=== PATIENT | female | born 1990 | race Caucasian/White ===

== ENCOUNTER → 2018-10-11 | Outpatient (REF) | payer OTHER | LOC: M LAB REF 16:33 | PROVIDERS: ATTEND Nurse Practitioner Women's Health | DX: Z34.83 Encounter for supervision of other normal pregnancy, third trimester (principal) ==

== ENCOUNTER 2019-02-19 12:51 | Emergency (ER) | payer OTHER ==
[~2019-02-19] VITALS: Ht 170.2 cm; Wt 84.5 kg
[2019-02-19] MEDS ORDERED: DEBL1TAB (12:59)
[2019-02-19] MEDS ORDERED: PREN1TAB15 (12:59)
[2019-02-19] MEDS ORDERED: SERT-155 (12:59)
[2019-02-19 13:42] LABS: BASO % 0.5 % (0.0-1.0); EOS # 0.1 10^3/uL (0.0-0.50); EOS % 1.5 % (0.0-3.0); LYMPH # 1.5 10^3/uL (1.5-6.5); LYMPH % 22.7 % (24.0-44.0); MEAN CORPUSCULAR HEMOGLOBIN 27.2 pg (27.0-33.0); MEAN CORPUSCULAR HGB CONC 32.6 g/dl (32.0-36.5); MEAN CORPUSCULAR VOLUME 83.7 fl (80.0-96.0); MONO # 0.5 10^3/uL (0.0-0.8); NEUTROPHILS # 4.5 10^3/uL (1.8-7.7); NEUTROPHILS % 68.1 % (36.0-66.0); PLATELET COUNT, AUTOMATED 302 10^3/uL (150-450); RED BLOOD COUNT 5.14 10^6/uL (4.00-5.40); WHITE BLOOD COUNT 6.5 10^3/uL (4.0-10.0)
[2019-02-19 13:59] LABS: INR 0.95; PROTHROMBIN TIME 12.4 SECONDS (11.8-14.0)
[2019-02-19 14:00] LABS: PARTIAL THROMBOPLASTIN TIME 29.8 SECONDS (25.0-38.4)
[2019-02-19] MEDS ORDERED: NS 1,000 ML IV ONE (14:00)
[2019-02-19 14:04] LABS: ALBUMIN 3.9 GM/DL (3.2-5.2); ALT/SGPT 31 U/L (12-78); BILIRUBIN,DIRECT 0.1 MG/DL (0.0-0.2); BILIRUBIN,TOTAL 0.2 MG/DL (0.2-1.0); BLOOD UREA NITROGEN 18 MG/DL (7-18); CALCIUM LEVEL 8.9 MG/DL (8.5-10.1); CARBON DIOXIDE LEVEL 26 MEQ/L (21-32); CHLORIDE LEVEL 107 MEQ/L (98-107); CREATININE FOR GFR 0.87 MG/DL (0.55-1.30); GLOMERULAR FILTRATION RATE > 60.0 (>60); GLUCOSE, FASTING 98 MG/DL (70-100); POTASSIUM SERUM 4.1 MEQ/L (3.5-5.1); SODIUM LEVEL 141 MEQ/L (136-145); TOTAL PROTEIN 7.5 GM/DL (6.4-8.2)
[2019-02-19 14:26] LABS: FREE T4 0.78 NG/DL (0.76-1.46); IRON (FE) 57 UG/DL (50-170); PERCENT SATURATION 15.2 % (13.2-45.0); TOTAL IRON BINDING CAPACITY 376 UG/DL (250-450)
[2019-02-19 14:29] LABS: FOLATE > 24.0 NG/ML (>5.4)
[2019-02-19 16:00] VITALS: BP 133/76
== END 2019-02-19 16:14 | disposition home or self-care (01) ==
LOC: M ED 12:51
DX: N89.8 Other specified noninflammatory disorders of vagina (principal); F33.9 Major depressive disorder, recurrent, unspecified; Z79.899 Other long term (current) drug therapy

== ENCOUNTER 2020-08-03 21:40 | Emergency (ER) | payer OTHER ==
[~2020-08-03] VITALS: Ht 170.2 cm; Wt 97.7 kg
[~2020-08-03 21:40] MED LIST: DEBL1TAB; PREN1TAB15; SERT50TA29 PO
--- OUTSIDE RECORDS SUMMARY | 2020-08-03 21:45 | CCD ---
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 [address] [place] [address] Apr Kirsitn Navarro Dysmenorrhea N94.6 ; major de pression in remission F53.0 and Immunization not carried out because of patient refusal Z28.21 IMMUNIZATIONS Vaccine Route Administration Date Status Influenza (6mo & up) Fluzone Unknown Apr 20, 2018 Adm inistered SOCIAL HISTORY Tobacco Use: Social History Observation Description Date Details (start date - stop date) Never Smoker Sex Assigned At : Social History Observation Description Sex Assigned At Unknown Language: Question Answer Notes Languages spoken: Turkish Sexual Hx: Question Answer Notes Had sex in the last 12 months (vaginal, oral, or anal)? Yes Have you ever had an STD? No with Men only Use protection? No Alcohol Screening: Question Answer Notes Did you have a drink containing alcohol in the past year? No Points 0 Interpretation Negative BMI Care Goal Follow-Up Question Answer Notes Above Normal BMI Follow-Up Dietary management educatio n, guidance, and counseling Tobacco Use: Question Answer Notes Are you a: never smoker REASON FOR REFERRAL No Information VITAL SIGNS Weight 206 lbs Apr, Height 66 1/4 in Apr, BMI 33.00 kg/m2 08 Oct, 2020 Heart Rate 72 /min Apr, Respiratory Rate 18 /min Apr, Temperature 98.9 degrees Fahrenheit Apr, Oximetry 96 Apr, Blood pressure systolic 102 mm Hg Apr, Blood pressure diastolic 72 mm Hg Apr, MEDICATIONS Medication SIG (Take, Route, Frequency, Duration) Start Date En d Date Status Sertraline HCl 50 MG TAKE ONE TABLET BY MOUTH EVERY DAY orally Ez y Active Levonorgest-Eth Estrad 91-Day 0.15-0.03 MG 1 tablet Or ally Once a day for 91 day(s) Apr, Active Sertraline HCl 25 MG 1 tablet Orally Once a day for 30 day(s) Active PROCEDURES No Information RESULTS No Results REASON FOR VISIT 1 year followup MEDICAL (GENERAL) HISTORY Type Description Date Medical History depression with hx of post depres raad Medical History migraines: well controlled Surgical History No know Surgical history Goals Section No Information Health Concerns No Information MEDICAL EQUIPMENT No Information MENTAL STATUS No Information FUNCTIONAL STATUS No Information ASSESSMENTS Encounter Date Diagnosis Notes Apr, major depression in remission (ICD-10 - F53.0) Apr, Dysmenorrhea (ICD-10 - N94.6) Apr, Immunization not carried out because of patient refusal (ICD-10 - Z28.21) PLAN OF TREATMENT Medication Medication Name Sig Start Date Stop Date Levonorgest-Eth Estrad 91-Day 0.15-0.03 MG 1 tablet Or ally Once a day for 91 day(s) Apr, Treatment Notes Assessment Notes Clinical Notes Dysmenorrhea Medication/s discuss ed with patient and questions answered. RTC as needed for worsening or unresolved symptoms. Patient states understanding and agreement with this plan. Next Appt Details 3-4 months WWE Reason: Insurance Providers Payer Name Payer Address Payer Phone Insured Name Patient Relati onship to Insured Coverage Start Date Coverage End Date [facility] [address] [address] [facility] [phone] JORGE RIDER self
--- OUTSIDE RECORDS SUMMARY | 2020-08-03 21:45 | CCD ---
Author [facility] Organization [facility] Address Unknown Phone Unavailable Care Team Providers Care Prepper Name Role Phone Dolores Navarroiffer Unavailable PROBLEMS Type Condition ICD9-CM Code [id number] Code Onset Dates Condition S tatus SNOMED Code Notes Problem Ocular migraine G43.109 Active 04660214 Problem Dysmenorrhea N94.6 Active 214754857 Problem Anxiety F41.9 Active 84829585 ALLERGIES No Known Allergies ENCOUNTERS from 1991 to 2020-06-26 Encounter Location Date Provider Diagnosis [address] [address] Jun Kirstin Navarro IMMUNIZATIONS Vaccine Route Administration Date Status Influenza (6mo & up) Fluzone Unknown Apr 20, 2018 Adm inistered SOCIAL HISTORY Tobacco Use: Social History Observation Description Date Details (start date - stop date) Never Smoker Sex Assigned At : Social History Observation Description Sex Assigned At Unknown Language: Question Answer Notes Languages spoken: Romanian Sexual Hx: Question Answer Notes Had sex [...] REASON FOR REFERRAL No Information VITAL SIGNS No information MEDICATIONS Medication SIG (Take, Route, Frequency, Duration) Notes Start Da te End Date Status Sertraline HCl 25 MG 1 tablet Orally Once a day for 30 day(s) Active Levonorgest-Eth Estrad -Day 0.15-0.03 MG 1 tablet Or ally Once a day for 91 day(s) Apr, Active Sertraline HCl 50 MG 1.5 tablet Orally Once a day for 30 Days Active PROCEDURES No Information RESULTS No Results REASON FOR VISIT refill MEDICAL (GENERAL) HISTORY Type Description Date Medical History depression with hx of post depres raad Medical History migraines: well controlled Surgical History No know Surgical history Goals Section No Information Health Concerns No Information MEDICAL EQUIPMENT No Information MENTAL STATUS No Information FUNCTIONAL STATUS No Information ASSESSMENTS No Information PLAN OF TREATMENT Medication Medication Name Sig Start Date Stop Date Levonorgest-Eth Estrad 91-Day 0.15-0.03 MG 1 tablet Or ally Once a day for 91 day(s) Apr, Sertraline HCl 50 MG 1.5 tablet Orally Once a day for 30 Days Insurance Providers Payer Name Payer Address Payer Phone Insured Name Patient Relati onship to Insured Coverage Start Date Coverage End Date [facility] [address] [address] [facility] [phone] JORGE RIDER self
--- OUTSIDE RECORDS SUMMARY | 2020-08-03 21:45 | CCD ---
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 Name Role Phone Sonia Kingsleyina MONEY ROOM TELLER Unavailable Unavailable Kingsley, Maryjo MONEY ROOM TELLER Unavailable Unavailable Kingsley, Maryjo MONEY ROOM TELLER Unavailable Unavailable Kingsley, Maryjo MONEY ROOM TELLER Unavailable Unavailable Kingsley, Maryjo MONEY ROOM TELLER Unavailable Unavailable Kingsley, Maryjo MONEY ROOM TELLER Unavailable Unavailable Kingsley, Maryjo MONEY ROOM TELLER Unavailable Unavailable Kingsley, Maryjo MONEY ROOM TELLER Unavailable Unavailable Kingsley, Maryjo MONEY ROOM TELLER Unavailable Unavailable Kingsley, Maryjo MONEY ROOM TELLER Unavailable Unavailable Kingsley, Maryjo MONEY ROOM TELLER Unavailable Unavailable LETTIERE, Yamilet RODRIGUEZ PA Unavailable Unavailable LETTIERE, Yamilet MATAMOROS Unavailable Unavailable LETTIERE, Yamilet MATAMOROS Unavailable Unavailable LETTIERE, Yamilet RODRIGUEZ PA Unavailable Unavailable LETTIERE, Yamilet RODRIGUEZ PA Unavailable Unavailable LETTIERE, Yamilet MATAMOROS Unavailable Unavailable LETTIERE, Yamilet MATAMOROS Unavailable Unavailable LETTIERE, Yamilet MATAMOROS Unavailable Unavailable LETTIERE, Yamilet MATAMOROS Unavailable Unavailable LETTIERE, Yamilet MATAMOROS Unavailable Unavailable LETTIERE, Yamilet MATAMOROS Unavailable Unavailable LETTIERE, Yamilet MATAMOROS Unavailable Unavailable LETTIERE, Yamilet MATAMOROS Unavailable Unavailable LETTIERE, Yamilet MATAMOROS Unavailable Unavailable LETTIERE, A RG PA Unavailable Unavailable LETTIERE, A RG PA Unavailable Unavailable LETTIERE, A RG PA Unavailable Unavailable LETTIERE, A RG PA Unavailable Unavailable LETTIERE, A RG PA Unavailable Unavailable LETTIERE, A RG PA Unavailable Unavailable LETTIERE, A RG PA Unavailable Unavailable LETTIERE, A RG PA Unavailable Unavailable LETTIERE, A RG PA Unavailable Unavailable LETTIERE, A RG PA Unavailable Unavailable LETTIERE, A RG PA Unavailable Unavailable LETTIERE, A RG PA Unavailable Unavailable LETTIERE, A RG PA Unavailable Unavailable LETTIERE, A RG PA Unavailable Unavailable LETTIERE, A RG PA Unavailable Unavailable Re-disclosure Warning The records that you are about to access may contain information from federally-assisted alcohol or drug abuse programs. If such information is present, then the following federally mandated warning applies: This information has been disclosed to you from records protected by federal confidentiality rules (42 CFR part 2). The federal rules prohibit you from making any further disclosure of this information unless further disclosure is expressly permitted by the written consent of the person to whom it pertains or as otherwise permitted by 42 CFR part 2. A general authorization for the release of medical or other information is NOT sufficient for this purpose. The Federal rules restrict any use of the information to criminally investigate or prosecute any alcohol or drug abuse patient.The records that you are about to access may contain highly sensitive health information, the redisclosure of which is protected by Article 27-F of the [facility] Public Health law. If you continue you may have access to information: Regarding HIV / AIDS; Provided by facilities licensed or operated by the [facility] Office of Mental Health; or Provided by the [facility] Office for People With Developmental Disabilities. If such information is present, then the following [facility] mandated warning applies: This information has been disclosed to you from confidential records which are protected by state law. State law prohibits you from making any further disclosure of this information without the specific written consent of the person to whom it pertains, or as otherwise permitted by law. Any unauthorized further disclosure in violation of state law may result in a fine or longterm sentence or both. A general authorization for the release of medical or other information is NOT sufficient authorization for further disc losure. Allergies and Adverse Reactions Type Description Substance Reaction Status Data Source(s ) Drug Allergy NKDA NKDA [facility] ([facility], [facility]) Family History Family Member Name Family Member Gender Family Member Status Date o f Status Description Data Source(s) Unknown Female Problem [facility] ([facility], [facility]) Encounters Encounter Providers Location Date Indications Data Source(s ) [place] [address] [address] [address] 06/25/2020 12:00:00 AM EST eCW1 ([facility]) Outpatient Attender: RG gibson 05/01/2020 08:50:00 AM EDT [facility] ([facility], [facility]) Outpatient [address] [address] 04/23/2020 12:00:00 AM EDT eCW1 ([facility]) Outpatient Attender: Maryjo roldan 10/15/2019 08:05:00 AM EDT MEDENT ([facility], [facility]) Medications Medication Brand Name Start Date Product Form Dose Route Admi nistrative Instructions Pharmacy Instructions Status Indications Reaction Description Data Source(s) 50 mg 06/26/2020 12:00:00 AM EST tablet 45 TAKE 1 & 1/2 TABLETS BY MOUTH ONCE DAILY TAKE 1 & 1/2 TABLETS BY MOUTH ONCE DAILY SOLD: 07/23/2020 [facility] 50 mg 06/26/2020 12:00:00 AM EST tablet 45 TAKE 1 & 1/2 TABLETS BY MOUTH ONCE DAILY TAKE 1 & 1/2 TABLETS BY MOUTH ONCE DAILY SOLD: 06/26/2020 [facility] [place] 91 Day Pack 0.15 mg-30 mcg (91) LEVONORGESTREL/ETHI NYL ESTRADIOL 04/25/2020 12:00:00 AM EDT tablets,dose pack,3 month 91 TAKE ONE TABLET BY MOUTH EVERY DAY TAKE ONE TABLET BY MOUTH EVERY DAY SOLD: 04/25/2020 [facility] [place] 91 Day Pack 0.15 mg-30 mcg (91) LEVONORGESTREL/ETHI NYL ESTRADIOL 04/25/2020 12:00:00 AM EDT tablets,dose pack,3 month 91 TAKE ONE TABLET BY MOUTH EVERY DAY TAKE ONE TABLET BY MOUTH EVERY DAY SOLD: 07/23/2020 [facility] Levonorgest-Eth Estrad 91-Day 0.15-0.03 MG Levonorgest -Eth Estrad 91-Day 0.15- 0.03 MG 04/23/2020 12:00:00 AM EDT 1.0 {tablet} acti ve Levonorgest- Eth Estrad 91-Day 0.15-0.03 MG eCW1 ([facility]) Levonorgest-Eth Estrad 91-Day 0.15-0.03 MG Levonorgest -Eth Estrad 91-Day 0.15- 0.03 MG 04/23/2020 12:00:00 AM EDT 1.0 {tablet} acti ve Levonorgest- Eth Estrad 91-Day 0.15-0.03 MG eCW1 ([facility]) 50 mg 02/19/2020 12:00:00 AM EDT tablet 45 TAKE 1 AND 1/2 TABLETS BY MOUTH ONCE DAILY TAKE 1 AND 1/2 TABLETS BY MOUTH ONCE DAILY SOLD: 02/21/2020 [facility] 50 mg 02/19/2020 12:00:00 AM EDT tablet 45 TAKE 1 AND 1/2 TABLETS BY MOUTH ONCE DAILY TAKE 1 AND 1/2 TABLETS BY MOUTH ONCE DAILY SOLD: 05/22/2020 [facility] 50 mg 02/19/2020 12:00:00 AM EDT tablet 45 TAKE 1 AND 1/2 TABLETS BY MOUTH ONCE DAILY TAKE 1 AND 1/2 TABLETS BY MOUTH ONCE DAILY SOLD: 03/26/2020 [facility] 50 mg 02/19/2020 12:00:00 AM EDT tablet 45 TAKE 1 AND 1/2 TABLETS BY MOUTH ONCE DAILY TAKE 1 AND 1/2 TABLETS BY MOUTH ONCE DAILY SOLD: 04/23/2020 [facility] 50 mcg/actuation 10/15/2019 12:00:00 AM EDT spray,suspension 16 SPRAY ONE TO TWO SPRAYS IN EACH NOSTRIL EVERY DAY-START WITH 2 SPRAYS NASALLY X 1 WEEK SPRAY ONE TO TWO SPRAYS IN EACH NOSTRIL EVERY DAY-START WITH 2 SPRAYS NASALLY X 1 WEEK SOLD: 10/15/2019 [facility] Flut[facility]asone Proprionate Nasal [place] [facility] Fl[facility] Prop [facility]ionate Nasal [place] 10/15/2019 12:00:00 AM EDT active MEDENT ([facility]) 25 mg 02/21/2019 12:00:00 AM EDT tablet 90 TAKE ONE TABLET BY MOUTH EVERY DAY FOR TOTAL DOSE OF 75 MG DAILY TAKE ONE TABLET BY MOUTH EVERY DAY FOR T OTAL DOSE OF 75 MG DAILY SOLD: 08/20/2019 [facility] 50 mg 02/21/2019 12:00:00 AM EDT tablet 90 TAKE ONE TABLET BY MOUTH EVERY DAY TAKE ONE TABLET BY MOUTH EVERY DAY SOLD: 09/01/2019 [facility] 50 mg 02/21/2019 12:00:00 AM EDT tablet 90 TAKE ONE TABLET BY MOUTH EVERY DAY TAKE ONE TABLET BY MOUTH EVERY DAY SOLD: 11/27/2019 [facility] 25 mg 02/21/2019 12:00:00 AM EDT tablet 90 TAKE ONE TABLET BY MOUTH EVERY DAY FOR TOTAL DOSE OF 75 MG DAILY TAKE ONE TABLET BY MOUTH EVERY DAY FOR T OTAL DOSE OF 75 MG DAILY SOLD: 11/13/2019 [facility] Insurance Providers Payer name Policy type / Coverage type Policy ID Covered libertarian ID Covered libertarian's relationship to andres Policy Andres Plan Information [facility] [id number] SP [id number] [facility] [id number] SP [id number] UMR [id number] S [id number] UMR [id number] S [id number] [employer] [id number] UMR -O [id number] 18 [id number] UMR -O/P [id number] 18 [id number] UMR -PHYSICIAN [id number] 1 8 [id number] [employer] -O/P [id number] 18 [id number] UMR O [id number] S [id number] UMR O [id number] S [id number] [employer] -O [id number] 18 [id number] [employer] SELF [id number] S [id number] [employer] PPO O [id number] S [id number] [employer] [id number] Self [id number] [employer] Self [employer] [id number] SP [id number] Problems, Conditions, and Diagnoses Code Display Name Description Problem Type Effective Dates Data Source(s) N94.6 [id number] Dysmenorrhea Problem 04/23/2020 12:00:00 AM EDT eCW1 ([facility]) Social History Code Duration Value Status Description Data Source(s ) Smoking 05/01/2020 12:00:00 AM EDT Patient has never smoked co mpleted Patient has never smoked MEDENT ([facility]) Smoking 04/23/2020 12:00:00 AM EDT Never Smoker completed Never S moker eCW1 ([facility]) Smoking 04/23/2020 12:00:00 AM EDT Never Smoker completed Never S moker eCW1 ([facility]) Vital Signs ID Date Data Source UNK Name Value Range Interpretation Code Description Data Source(s) Body mass index (BMI) [Ratio] 32.3 kg/m2 32.3 k g/m2 MEDENT ([facility], [facility]) Body height 67 [in_i] 67 [in_i] MED[facility] ([facility] 5'7" Body weight 206.00 [lb_av] 206.00 [lb_av] MEDEN T ([facility]) Body temperature 98.0 [degF] 98.0 [degF] MEDENT ([facility]) Oxygen saturation in Arterial blood by Pulse oximetry 98 % 98 % [facility] ([facility]) Respiratory rate 16 /min 16 /min MED[facility] ( [facility]) Heart rate 76 /min 76 /min [facility] ([facility]) Diastolic blood pressure 80 mm[Hg] 80 mm[Hg] MEDENT ([facility]) Systolic blood pressure 119 mm[Hg] 119 mm[Hg] M EDENT ([facility]) Diastolic blood pressure 72 mm[Hg] 72 mm[Hg] eCW1 ([facility]) Systolic blood pressure 102 mm[Hg] 102 mm[Hg] e CW1 ([facility]) Body temperature 98.9 [degF] 98.9 [degF] eCW1 ( [facility]) Respiratory rate 18 /min 18 /min eCW1 ([facility]) Heart rate 72 /min 72 /min eCW1 ([facility]) Body mass index (BMI) [Ratio] 33.00 kg/m2 33.00 kg/m2 eCW1 ([facility]) Body height [in_i] eCW[facility] Body weight 206 [lb_av] 206 [lb_av] eCW1 ([facility]) Body mass index (BMI) [Ratio] 30.5 kg/m2 30.5 k g/m2 MEDENT ([facility], [facility]) Body height 67 [in_i] 67 [in_i] MEDENT ([facility], [facility]) 5'7" Body weight 195.00 [lb_av] 195.00 [lb_av] MEDEN T ([facility], [facility]) Body temperature 98.2 [degF] 98.2 [degF] MEDENT ([facility], [facility]) Oxygen saturation in Arterial blood by Pulse oximetry 97 % 97 % [facility], [facility]) Respiratory rate 17 /min 17 /min [facility] ( [facility], [facility]) Heart rate 88 /min 88 /min MEDENT ([facility], [facility]) Diastolic blood pressure 77 mm[Hg] 77 mm[Hg] MEDENT ([facility], [facility]) Systolic blood pressure 110 mm[Hg] 110 mm[Hg] M EDENT ([facility], [facility]) Patient Treatment Plan of Care Planned Activity Planned Date Details Description Data Source (s) Levonorgest-Eth Estrad 91-Day 0.15-0.03 MG 04/23/2020 12:00:00 AM E DT eCW1 ([facility]) Levonorgest-Eth Estrad 91-Day 0.15-0.03 MG 04/23/2020 12:00:00 AM E DT eCW1 ([facility])
[2020-08-03] MEDS ORDERED: SETL1TAB (21:49)
[2020-08-03 22:51] VITALS: BP 122/78
--- OUTSIDE RECORDS SUMMARY | 2020-08-03 22:53 | CCD ---
Author Author [facility] Organization [facility] Address Unknown Phone Unavailable Care Team Providers Care Roving Or Yarn Color Checker Name Role Phone Sonia Kingsleyina SAFETY INSTRUCTOR Unavailable Unavailable Kingsley, Maryjo SAFETY INSTRUCTOR Unavailable Unavailable Kingsley, Maryjo SAFETY INSTRUCTOR Unavailable Unavailable Kingsley, Maryjo SAFETY INSTRUCTOR Unavailable Unavailable Kingsley, Maryjo SAFETY INSTRUCTOR Unavailable Unavailable Kingsley, Maryjo SAFETY INSTRUCTOR Unavailable Unavailable Kingsley, Maryjo SAFETY INSTRUCTOR Unavailable Unavailable Kingsley, Maryjo SAFETY INSTRUCTOR Unavailable Unavailable Kingsley, Maryjo SAFETY INSTRUCTOR Unavailable Unavailable Kingsley, Maryjo SAFETY INSTRUCTOR Unavailable Unavailable Kingsley, Maryjo SAFETY INSTRUCTOR Unavailable Unavailable LETTIERE, Yamilet RODRIGUEZ PA Unavailable [...] is protected by Article 27-F of the [facility] Public Health law. If you continue you may have access to information: Regarding HIV / AIDS; Provided by facilities licensed or operated by the [facility] Office of Mental Health; or Provided by the [facility] Office for People With Developmental Disabilities. If such information is present, then the following [facility] mandated warning applies: This information has been [...] law may result in a fine or penitentiary sentence or both. A general authorization for the release of medical or other information is NOT sufficient authorization for further disc losure. Allergies and Adverse Reactions Type Description Substance Reaction Status Data Source(s ) Drug Allergy NKDA NKDA [facility] ([facility], [facility]) Family History Family Member Name Family Member Gender Family Member Status Date o f Status Description Data Source(s) Unknown Female Problem [facility] ([facility], [facility]) Encounters Encounter Providers Location Date Indications Data Source(s ) Unknown [id number] [facility] [address] 06/25/2020 12:00:00 AM EST eCW1 ([facility]) Outpatient Attender: RG gibson 05/01/2020 08:50:00 AM EDT [facility] ([facility]) Outpatient [id number] [facility] [address] 04/23/2020 12:00:00 AM EDT eCW1 ([facility]) Outpatient Attender: Maryjo roldan 10/15/2019 08:05:00 AM EDT [facility] ([facility], [facility]) Medications Medication Brand Name Start Date Product Form Dose Route Admi nistrative Instructions Pharmacy Instructions Status Indications Reaction Description Data Source(s) 50 mg 06/26/2020 12:00:00 AM EST tablet 45 TAKE 1 & 1/2 TABLETS BY MOUTH ONCE DAILY TAKE 1 & 1/2 TABLETS BY MOUTH ONCE DAILY SOLD: 07/23/2020 [facility] 50 mg 06/26/2020 12:00:00 AM EST tablet 45 TAKE 1 & 1/2 TABLETS BY MOUTH ONCE DAILY TAKE 1 & 1/2 TABLETS BY MOUTH ONCE DAILY SOLD: 06/26/2020 [facility] [place] 91 Day Pack 0.15 mg-30 mcg (91) LEVONORGESTREL/ETHI NYL ESTRADIOL 04/25/2020 12:00:00 AM EDT tablets,dose pack,3 month 91 TAKE ONE TABLET BY MOUTH EVERY DAY TAKE ONE TABLET BY MOUTH EVERY DAY SOLD: 04/25/2020 [facility] [place] 91 Day Pack 0.15 mg-30 mcg (91) LEVONORGESTREL/ETHI NYL ESTRADIOL 04/25/2020 12:00:00 AM EDT tablets,dose pack,3 month 91 TAKE ONE TABLET BY MOUTH EVERY DAY TAKE ONE TABLET BY MOUTH EVERY DAY SOLD: 07/23/2020 [email or web address] Levonorgest-Eth Estrad 91-Day 0.15-0.03 MG Levonorgest -Eth Estrad 91-Day 0.15- 0.03 MG 04/23/2020 12:00:00 AM EDT 1.0 {tablet} acti ve Levonorgest- Eth Estrad 91-Day 0.15-0.03 MG eCW1 ([facility]) Levonorgest-Eth Estrad 91-Day 0.15-0.03 MG Levonorgest -Eth Estrad 91-Day 0.15- 0.03 MG 04/23/2020 12:00:00 AM EDT 1.0 {tablet} acti ve Levonorgest- Eth Estrad 91-Day 0.15-0.03 MG eCW1 ([facility]) 50 mg 02/19/2020 12:00:00 AM EDT tablet [...] SPRAYS NASALLY X 1 WEEK SOLD: 10/15/2019 [facility] Fl[facility] Proprionate Nas[facility] [place] [facility] Fluticasone Prop [facility]ionate Nasal [place] 10/15/2019 12:00:00 AM EDT active MEDENT ([facility]) 25 mg 02/21/2019 12:00:00 AM EDT [...] type / Coverage type Policy ID Covered alliance party ID Covered alliance party's relationship to andres Policy Andres Plan Information [facility] [id number] SP [id number] [facility] [id number] SP [id number] UMR [id number] S [id number] UMR [id number] S [id number] [facility] [id number] S [id number] UMR -O [id number] 18 [id number] UMR -O/P [id number] 18 [id number] UMR -PHYSICIAN [id number] 1 8 [id number] [facility] -O/P [id number] 18 [id number] UMR O [id number] S [id number] UMR O [id number] S [id number] [employer] -O [id number] 18 [id number] [employer] SELF [id number] S [id number] [employer] PPO O [id number] S [id number] [employer] [id number] Self [id number] [employer] Self [employer] [id number] SP [id number] Problems, Conditions, and Diagnoses Code Display Name Description Problem Type Effective Dates Data Source(s) N94.6 [id number] Dysmenorrhea Problem 04/23/2020 12:00:00 AM EDT eCW1 ([facility]) Social History Code Duration Value Status Description Data Source(s ) Smoking 05/01/2020 12:00:00 AM EDT Patient has never smoked co mpleted Patient has never smoked MED[facility] ([facility]) Smoking 04/23/2020 12:00:00 AM EDT Never Smoker completed Never S moker eCW1 ([facility]) Smoking 04/23/2020 12:00:00 AM EDT Never Smoker completed Never S moker eCW1 ([facility]) Vital Signs ID Date Data Source UNK Name Value Range Interpretation Code Description Data Source(s) Body mass index (BMI) [Ratio] 32.3 kg/m2 32.3 k g/m2 MED[facility] ([facility], [facility]) Body height 67 [in_i] 67 [in_i] MEDENT ([facility]) 5'7" Body weight 206.00 [lb_av] 206.00 [lb_av] MEDEN T ([facility]) Body temperature 98.0 [degF] 98.0 [degF] MEDENT ([facility]) Oxygen saturation in Arterial blood by Pulse oximetry 98 % 98 % MED[facility] ([facility]) Respiratory rate 16 /min 16 /min MEDENT ( [facility]) Heart rate 76 /min 76 /min MEDENT ([facility]) Diastolic blood pressure 80 mm[Hg] 80 mm[Hg] MEDENT ([facility]) Systolic blood pressure 119 mm[Hg] 119 mm[Hg] M EDENT ([facility]) Diastolic blood pressure 72 mm[Hg] 72 mm[Hg] eCW1 ([facility]) Systolic blood pressure 102 mm[Hg] 102 mm[Hg] e CW1 ([facility]) Body temperature 98.9 [degF] 98.9 [degF] eCW1 ( [facility]) Respiratory rate 18 /min 18 /min eCW1 ([facility]) Heart rate 72 /min 72 /min eCW1 ([facility]) Body mass index (BMI) [Ratio] 33.00 kg/m2 33.00 kg/m2 eCW1 ([facility]) Body height [in_i] eCW1 ([facility]) Body weight 206 [lb_av] 206 [lb_av] eCW1 ([facility]) Body mass index (BMI) [Ratio] 30.5 kg/m2 30.5 k g/m2 MEDENT ([facility], [facility]) Body height 67 [in_i] 67 [in_i] MEDENT ([facility], [facility]) 5'7" Body weight 195.00 [lb_av] 195.00 [lb_av] MEDEN T ([facility], [facility]) Body temperature 98.2 [degF] 98.2 [degF] MEDENT ([facility], [facility]) Oxygen saturation in Arterial blood by Pulse oximetry 97 % 97 % [facility] ([facility], [facility]) Respiratory rate 17 /min 17 /min [facility] ( [facility], [facility]) Heart rate 88 /min 88 /min MED[facility] ([facility], [facility]) Diastolic blood pressure 77 mm[Hg] 77 mm[Hg] MEDENT ([facility], [facility]) Systolic blood pressure 110 mm[Hg] 110 mm[Hg] M EDENT ([facility], [facility]) Patient Treatment Plan of Care Planned Activity Planned Date Details Description Data Source (s) Levonorgest-Eth Estrad 91-Day 0.15-0.03 MG 04/23/2020 12:00:00 AM E DT eCW1 ([facility]) Levonorgest-Eth Estrad 91-Day 0.15-0.03 MG 04/23/2020 12:00:00 AM E DT eCW1 ([facility])
== END 2020-08-03 22:54 | disposition home or self-care (01) ==
LOC: M ED 21:40
DX: R13.10 Dysphagia, unspecified (principal); R21 Rash and other nonspecific skin eruption; T50.B95A Adverse effect of other viral vaccines, initial encounter; Z79.899 Other long term (current) drug therapy; Z79.3 Long term (current) use of hormonal contraceptives

== ENCOUNTER → 2021-07-05 | Outpatient (REF) | payer OTHER ==
[~2021-07-05] MED LIST changes: +SETL1TAB
== END ==
LOC: M SFHCCLAY 15:59
PROVIDERS: ATTEND Nurse Practitioner Family
DX: Z01.84 Encounter for antibody response examination (principal)

== ENCOUNTER → 2021-11-11 | Outpatient (REF) | payer OTHER ==
[2021-11-11 11:35] LABS: BASO % 0.4 % (0.0-1.0); EOS # 0.1 10^3/uL (0.0-0.5); HEMATOCRIT 41.9 % (36.0-47.0); HEMOGLOBIN 14.1 g/dl (12.0-15.5); LYMPH # 2.1 10^3/uL (1.5-5.0); LYMPH % 20.6 % (24.0-44.0); MEAN CORPUSCULAR HEMOGLOBIN 28.8 pg (27.0-33.0); MEAN CORPUSCULAR HGB CONC 33.7 g/dl (32.0-36.5); MEAN CORPUSCULAR VOLUME 85.5 fl (80.0-96.0); MONO # 0.6 10^3/uL (0.0-0.8); MONO % 6.4 % (2.0-8.0); NEUTROPHILS # 7.1 10^3/uL (1.5-8.5); NEUTROPHILS % 71.3 % (36.0-66.0); PLATELET COUNT, AUTOMATED 336 10^3/uL (150-450); WHITE BLOOD COUNT 9.9 10^3/uL (4.0-10.0)
[2021-11-11 12:00] LABS: FREE T4 0.79 NG/DL (0.76-1.46); THYROID STIMULATING HORMONE 1.68 uIU/ML (0.358-3.740)
[2021-11-11 12:10] LABS: HEMOGLOBIN A1c 5.3 %
== END ==
LOC: M LABDRAWC 11:19
PROVIDERS: ATTEND Obstetrics & Gynecology
DX: N92.0 Excessive and frequent menstruation with regular cycle (principal)

== ENCOUNTER → 2023-08-15 | Outpatient (CLI) | payer OTHER | LOC: M CLY 14:22 | PROVIDERS: ATTEND Nurse Practitioner Family | DX: M25.532 Pain in left wrist (principal) ==

== ENCOUNTER → 2024-10-23 | Outpatient (REF) | payer OTHER ==
[2024-10-23 13:12] LABS: COMPLEMENT C3 199.9 MG/DL (84.0-160.0); RHEUMATOID FACTOR QUANT < 3.5 IU/ML (<14)
[2024-10-23 13:36] LABS: TOTAL PROTEIN,RANDOM URINE 7.9 MG/DL (0.0-14.0)
[2024-10-23 13:39] LABS: CREATININE,RANDOM URINE 59.3 MG/DL
[2024-10-24 17:15] LABS: SSA SJOGRENS A <1.0 NEG AI (<1.0 NEG); SSB SJOGRENS B <1.0 NEG AI (<1.0 NEG)
[2024-10-28 13:33] LABS: ANA PATTERN Nuclear, Homogeneous (NEGATIVE); ANA SCREEN, IFA POSITIVE (NEGATIVE)
[2024-10-28 18:32] LABS: ANTI DS-DNA AB NEGATIVE (NEGATIVE)
== END ==
LOC: M SFHCCLAY 08:42
PROVIDERS: ATTEND Nurse Practitioner Family
DX: M25.50 Pain in unspecified joint (principal)